=== PATIENT | female | born 1980 | race Caucasian/White ===

== ENCOUNTER 2019-06-17 | Emergency (ER) | payer MEDICARE, OTHER ==
[~2019-06-17] VITALS: Ht 177.8 cm; Wt 139.7 kg
--- OUTSIDE RECORDS SUMMARY | 2019-06-17 00:05 | XMS REPORT | Summary of Care ---
Author Organization Unknown Address Unknown Phone Unavailable Encounter HQ Encntr_alias(FIN) [id number] Date(s): 03/15/15 - 03/15/15 [facility] Outpatient Imaging - [address] [address]- [facility] [phone] Discharge Disposition: Home Physician Attending: Curtis Ortega MD Vital Signs No data available for this section Problem List No data available for this section Allergies, Adverse Reactions, Alerts No data available for this section Medications No data available for this section Results No data available for this section Immunizations No data available for this section Procedures No data available for this section Social History No data available for this section Assessment and Plan No data available for this section
--- OUTSIDE RECORDS SUMMARY | 2019-06-17 00:05 | XMS REPORT | Summary of Care ---
Author Author [facility] Outpatient Imaging - [place] Organization [facility] - [place] Address Unknown Phone Unavailable Encounter HQ Encntr_alias(FIN) [id number] Date(s): 09/05/17 - 09/05/17 [facility] Outpatient Imaging - [place] [address] [place] [phone] Discharge Disposition: Home or Self Care Attending Physician: Curtis Ortega MD Vital Signs No data [...]
--- OUTSIDE RECORDS SUMMARY | 2019-06-17 00:05 | XMS REPORT | Continuity of Care Document ---
Author Author [facility] Address Unknown Phone Unavailable Care Team Providers Care Knowledge Management Consultant Name Role Phone [employer]) Information [employer] Unavailable Unavailable Problems Problem Status Onset Date Classification Date Reported Comments Source Nontoxic multinodular goiter 12/20/2017 03/22/2018 [facility] [place] DX; E04.1= Active 06/07/2017 [facility] E04.1 - NONTOXIC SINGLE THYROID NODULE Active 05/28/2017 [facility] [place] NONTOXIC SINGLE THYROID NODULE Active [facility] Medications No Data Provided for This Section Allergies, Adverse Reactions, Alerts No Known Medication Allergies Immunizations No Data Provided for This Section Results No Data Provided for This Section Pathology Reports No Data Provided for This Section Diagnostic Reports Report Value Date Source Thyroid US Exam: Thyroid ultrasound Reason for Exam: E04.2 Nontoxic multinodular goiter - E04.2 Nontoxic multinodular goiter Comparison Exam: Ultrasound 06/15/2017 and 06/01/2017 Discussion: Multiple axial and sagittal images were obtained of the thyroid gland. The right lobe of the thyroid gland measures 4.7 x 1.2 x 1.7 cm. A few nodules are seen within the right lobe. The largest measures 0.9 x 0.8 x 0.6 cm. Vascular flow within the thyroid parenchyma is within normal limits. The isthmus measures 0.2 cm in width and is within normal limits. The left lobe of the thyroid gland measures 4.6 x 1.1 x 1.9 cm. A few nodules are seen within the left lobe. The largest is complex and measures 1.1 x 0.9 x 0.5 cm (previously 1.8 x 1.4 x 1.0 cm). Vascular flow within the thyroid parenchyma is within normal limits. No lymphadenopathy seen within the thyroid region. Impression: 1. Thyroid gland is within normal limits for size. Multiple nodules and cysts are seen. The largest is on the left and measures 1.1 x 0.9 x 0.5 cm (previously 1.8 x 1.4 x 1.0 cm). 12/14/2017 ASHLEIGH Hernandez Knee 1-2 Views unilateral DX Exam: Right knee x-ray, 2 views Reason for Exam: - knee pain Comparison Exam: none Discussion: No fractures or dislocations are seen of the right knee. The joint spaces are preserved. No intraosseous lesions. No radiopaque foreign bodies. Impression: 1. No acute bony abnormalities seen within the right knee. 09/05/2017 ASHLEIGH Hernandez Thyroid biopsy w guidance US Patient Name: MAY PARIS : 1980; Age: 37 years Female MR: [id number] Study: Thyroid biopsy w guidance US 06/15/2017 9:33 AM CDT PROCEDURE: Ultrasound-guided FNA of left thyroid nodule CLINICAL INFORMATION: Left thyroid nodule Comparison: Thyroid ultrasound on 06/01/2017 CONSENT: The procedure, risks, benefits and alternatives were discussed with the patient and written informed consent was obtained. TECHNIQUE: surveillance sensor operator: Dr. Kitchen Preoperative diagnosis: Left thyroid nodule Postoperative diagnosis: Same Estimated blood loss: Minimal Pain control: 1% lidocaine was administered for local anesthesia. Preprocedure sonographic imaging demonstrated a 1.9 cm predominantly cystic nodule within the left thyroid lobe. The patient's neck was prepped and draped in the usual sterile fashion. The overlying skin was anesthetized with 1% lidocaine. Under sterile sonographic guidance, fine-needle aspiration (4 passes) was performed of the targeted nodule using 25-gauge needles. The nodular component was specifically targeted. Slides were prepared by the production control technologist. Patient tolerated the procedure well without immediate complication. IMPRESSION: Successful ultrasound-guided fine-needle aspiration of the left thyroid nodule. SL: [id number] 06/15/2017 [facility] Thyroid US Exam: Thyroid ultrasound Reason for Exam: - E04.1 Nontoxic single thyroid nodule Comparison Exam: None Discussion: Multiple axial and sagittal images were obtained of the thyroid gland. The right lobe of the thyroid gland measures 4.6 x 1.8 x 1.1 cm. Slightly hyperechoic nodule seen within the inferior aspect of the right thyroid lobe measuring 9 mm. Note that this may represent a parathyroid gland. Vascular flow within the thyroid parenchyma is within normal limits. The isthmus measures 0.2 cm in width and is within normal limits. The left lobe of the thyroid gland measures 4.5 x 1.9 x 1.6 cm. Within the superior pole of the simple appearing cyst measuring 3 mm. A complex cystic and solid-appearing nodule seen within the interpolar region measuring 1.8 x 1.4 x 1.0 cm. Slightly hyperechoic nodule seen within the inferior aspect of the left thyroid lobe measuring 5 mm. Note that this may represent a parathyroid gland. Vascular flow within the thyroid parenchyma is within normal limits. No lymphadenopathy seen within the thyroid region. Impression: 1. Thyroid gland is within normal limits for size. Multiple nodules and cysts are seen. The largest is seen on the left and is complex cystic and solid. Follow- up exam is recommended. 06/01/2017 [facility] [place] [facility] Consultation Notes No Data Provided for This Section Discharge Summaries No Data Provided for This Section History and Physicals No Data Provided for This Section Vital Signs No Data Provided for This Section Encounters Location Location Details Encounter Type Encounter Number Reason For Visit Attending Provider ADM Date DC Date Status Source [facility] Outpatient Imaging - [place] [facility] [id number] Curtis Ortega 12/08/2014 12/09/2014 [facility] [place] [facility] - [place] [facility] [id number] Curtis Ortega 03/15/2015 03/16/2015 [facility] [place] [facility] Out[facility] Imaging - [place] [facility] [id number] Ceci Smith 06/01/2017 06/02/2017 [facility] [place] [facility] Outpatient [id number] Ceci Smith 06/15/2017 06/16/2017 [facility] Outpatient Imaging - [place] [facility] [id number] Curtis Ortega 09/05/2017 09/06/2017 [facility] [place] [facility] Out[facility] Imaging - [place] [facility] [id number] Cecifior Smith 12/14/2017 12/15/2017 [facility] [place] Procedures No Data Provided for This Section Assessment and Plan No Data Provided for This Section Plan of Care No Data Provided for This Section Social History Social History Date Source No data available for this section 12/15/2017 [facility] [place] No data available for this section 06/16/2017 [facility] Family History No Data Provided for This Section Advance Directives No Data Provided for This Section Functional Status No Data Provided for This Section
--- OUTSIDE RECORDS SUMMARY | 2019-06-17 00:05 | XMS REPORT ---
Author Author [facility] Address Unknown Phone Unavailable Care Team Providers Care Marionette Performer Name Role Phone Unavailable Unavailable Payers Payer Name Policy Type Policy Number Effective Date Expiration Date Problems This patient has no known problems. Allergies, Adverse Reactions, Alerts Allergy Name Allergy Type Status Severity Reaction(s) Onset Date Inactive Date Treating Clinician Comments No Known Allergies DA Active U 2018-11-25 00:00:00 No Known Allergies DA Active U 2015-04-03 00:00:00 Medications This patient has no known medications. Results Test Description Test Time Test Comments Text Results Atomic Results Result Comments - CT ABD PELVIS W/CONT 2018-11-25 18:22:00 Name: MAY PARIS [facility] : 1980 Age/S: 38 / F [address] [place] [address] Unit #: [id number] Loc: [place] [address] Phys: Kingsotn Cronin Acct: [id number] Dis Date: Status: REG ER PHONE #: [phone] Exam Date: 11/25/2018 1750 FAX #: [phone] Reason: lower abdominal pain, vomiting, fever EXAMS: CPT CODE: [id number] CT ABD PELVIS W/CONT [id number] PROCEDURE: CT ABDOMEN AND PELVIS WITH CONTRAST INDICATION: lower abdominal pain, vomiting, fever COMPARISON: November 2011 TECHNIQUE: Helical imaging was performed diaphragm through the symphysis with multiplanar reconstructions. IV CONTRAST: 100 mL Isovue-300. GI CONTRAST: 10 mL Gastrografin diluted in water. CT imaging performed at this location utilizes radiation dose optimization techniques which include one or more of the following: - Automated exposure control -Adjustment of the mA and/or kV according to patient size -Use of iterative reconstruction technique CT Radiation Dose DLP 719.17 mGy-cm FINDINGS: LOWER CHEST: The lung bases are clear. LIVER: Normal. GALLBLADDER: Surgically absent SPLEEN: Normal. PANCREAS: Normal. ADRENALS: Normal. KIDNEYS: 10 x 9 mm water attenuation lesion ventral cortex lower pole right kidney compatible with benign cyst. The kidneys are otherwise normal. No urinary calculi, hydronephrosis or perinephric edema. BOWEL: Stomach is contracted, otherwise unremarkable. GI contrast progresses through normal caliber small bowel into the colon without obstruction. Scattered fluid levels within normal caliber small bowel. No gross pathologic wall thickening. No associated mesenteric edema. Subcentimeter mesenteric nodes without significant change. The colon is unremarkable. APPENDIX: Normal. PERITONEUM: No free intraperitoneal fluid or air. PAGE 1 Signed Report (CONTINUED) Name: MAY PARIS [facility] : 1980 Age/S: 38 / F [address] [place] [address] Unit #: [id number] Loc: [place] [address] Phys: Kingston Cronin Acct: [id number] Dis Date: Status: REG ER PHONE #: [phone] Exam Date: 11/25/2018 1750 FAX #: [phone] Reason: lower abdominal pain, vomiting, fever EXAMS: CPT CODE: [id number] CT ABD PELVIS W/CONT 51297 <Continued> RETROPERITONEUM: No adenopathy. The aorta is normal. PELVIS: Assessment limited secondary to increased image noise related to patient body habitus. No pelvic mass. The urinary bladder is unremarkable. MUSCULOSKELETAL: Degenerative changes lumbar spine. No acute skeletal abnormality. IMPRESSION: 1. Air-fluid levels within normal caliber small bowel most compatible with an enteritis. Negative for bowel obstruction. 2. Small right renal cortical cyst. SL: [id number] at 1822 Reported and signed by: Gene Toney M.D. CC: Will Grayson MD; Kingston GARZA Technologist:RT Tomy(R) CTDI: DLP: Trnscb Date/Time: 11/25/2018 (1821) [email or web address] Orig Print D/T: S: 11/25/2018 (8556) CTDI: DLP: PAGE 2 Signed Report URINALYSIS COMPLETE 2018-11-25 15:50:00 UA COLOR (test code=COLU) YELLOW YEL/STRAW UA APPEARANCE (test code=APPU) SL CLOUDY CLEAR UA GLUCOSE DIPSTICK (test code=DGLUU) 3+ NEGATIVE UA BILIRUBIN DIPSTICK (test code=BILU) NEGATIVE NEGATIVE UA KETONE DIPSTICK (test code=KETU) NEGATIVE NEGATIVE UA SPECIFIC GRAVITY (test code=SGU) 1.035 1.005-1.030 UA BLOOD DIPSTICK (test code=JOE) NEGATIVE NEGATIVE UA PH DIPSTICK (test code=MARILU) 6.0 5.0-7.0 UA PROTEIN DIPSTICK (test code=PROU) NEGATIVE NEGATIVE UA UROBILINIOGEN DIPSTICK (test code=URO) 0.2 mg/dL 0.2-1.0 UA NITRITE DIPSTICK (test code=BRANDON) NEGATIVE NEGATIVE UA LEUKOCYTE ESTERASE DIPSTICK (test code=LEUU) NEGATIVE NEGATIVE UA WBC (test code=WBCU) 0-3 WBC/HPF 0-3 UA RBC (test code=RBCU) 0-3 RBC/HPF 0-3 UA BACTERIA (test code=BACU) TRACE /HPF NONE SEEN UA SQUAMOUS CELLS (test code=SQU) 0-5 /HPF NONE SEEN COMMENTS: Clean CatchHEPATIC FUNCTION [id number] 15:38:00* Test Item Value Reference Range Comments TOTAL PROTEIN (test code=PROT) 8.2 g/dL 6.4-8.2 ALBUMIN (test code=ALB) 3.50 g/dL 3.4-5.0 BILIRUBIN TOTAL (test code=BILT) 0.70 mg/dL 0.0-1.0 BILIRUBIN DIRECT (test code=BILD) 0.20 MG/DL 0.0-0.30 BILIRUBIN INDIRECT (test code=BILIND) 0.50 MG/DL SGOT/AST (test code=AST) 18 IUnit/L 15-37 SGPT/ALT (test code=ALT) 19 IUnit/L 15-65 ALKALINE PHOSPHATASE TOTAL (test code=ALKP) 86 IUnit/L 20-125 [id number] 15:38:00* Test Item Value Reference Range Comments LIPASE (test code=LIP) 104 IUnit/L 73-393 HCG SERUM [id number] 15:38:00* Test Item Value Reference Range Comments HCG SERUM QUAL (test code=HCGQL) SERUM NEGATIVE NEGATIVE HEPATIC FUNCTION [id number] 15:36:00* Test Item Value Reference Range Comments TOTAL PROTEIN (test code=PROT) g/dL 6.4-8.2 ALBUMIN (test code=ALB) g/dL 3.4-5.0 BILIRUBIN TOTAL (test code=BILT) mg/dL 0.0-1.0 BILIRUBIN DIRECT (test code=BILD) MG/DL 0.0-0.30 SGOT/AST (test code=AST) IUnit/L 15-37 SGPT/ALT (test code=ALT) IUnit/L 15-65 ALKALINE PHOSPHATASE TOTAL (test code=ALKP) IUnit/L 20-125 [id number] 15:36:00* Test Item Value Reference Range Comments LIPASE (test code=LIP) IUnit/L 73-393 HCG SERUM [id number] 15:36:00* Test Item Value Reference Range Comments HCG SERUM QUAL (test code=HCGQL) SERUM NEGATIVE NEGATIVE CBC W/AUTO [id number] 15:20:00* Test Item Value Reference Range Comments WHITE BLOOD CELL (test code=WBC) 6.22 x10 3/uL 4.5-11.0 RED BLOOD CELL (test code=RBC) 4.90 x10 6/uL 3.54-5.02 HEMOGLOBIN (test code=HGB) 14.9 g/dL 11.0-15.0 HEMATOCRIT (test code=HCT) 45.4 % 33.0-45.0 MEAN CELL VOLUME (test code=MCV) 92.7 fL 81.0-99.0 MEAN CELL HGB (test code=MCH) 30.4 pg 27.0-33.0 MEAN CELL HGB CONCETRATION (test code=MCHC) 32.8 g/dL 33.0-37.0 RED CELL DISTRIBUTION WIDTH CV (test code=RDW) 16.8 % 11.5-14.5 RED CELL DISTRIBUTION WIDTH SD (test code=RDW-SD) 49.1 fL 37.0-54.0 PLATELET COUNT (test code=PLT) 298 x10 3/uL 150-400 MEAN PLATELET VOLUME (test code=MPV) 10.2 fL 7.0-9.0 NEUTROPHIL % (test code=NT%) 85.1 % 56.0-77.0 IMMATURE GRANULOCYTE % (test code=IG%) 0.3 % 0.0-2.0 LYMPHOCYTE % (test code=LY%) 9.5 % 14.0-32.0 MONOCYTE % (test code=MO%) 4.2 % 4.8-9.0 EOSINOPHIL % (test code=EO%) 0.3 % 0.3-3.7 BASOPHIL % (test code=BA%) 0.6 % 0.0-2.0 NUCLEATED RBC % (test code=NRBC%) 0.0 % 0-0 NEUTROPHIL # (test code=NT#) 5.29 x10 3/uL 2.0-7.6 IMMATURE GRANULOCYTE # (test code=IG#) 0.02 x10 3/uL 0.00-0.03 LYMPHOCYTE # (test code=LY#) 0.59 x10 3/uL 1.0-3.8 MONOCYTE # (test code=MO#) 0.26 x10 3/uL 0.1-0.8 EOSINOPHIL # (test code=EO#) 0.02 x10 3/uL 0.0-0.2 BASOPHIL # (test code=BA#) 0.04 x10 3/uL 0.0-0.2 NUCLEATED RBC # (test code=NRBC#) 0.00 x10 3/uL 0.0-0.1 MANUAL DIFF REQUIRED (test code=MDIFF) NO TROPONIN-I [id number] 14:59:00* Test Item Value Reference Range Comments TROPONIN-I RAPID (test code=TROPIRAP) 0.00 ng/mL 0.00-0.08 Performed by certified receiving [facility] Global Task Force with joint leadership from the EuropeanSociety of Cardiology (ESC), the [place] [employer] Foundation (ACCF), the [place] Heart Association(AHA) and the World Heart Federation (WHF) refined past criteria of myocardial infarction ([place]) with a universal definition of myocardial infarction that supports the use of cTnI as a preferred biomarker for myocardial injury. The universal definition of W[place], according to this taskforce, is defined as a typical rise and gradual fall ofcardiac biomarkers (preferably troponin) with at least onevalue above the 99th percentile of the upper reference limit (URL) together with evidence of myocardial ischemia with at least one of the following:* ischemic symptoms,* pathological Q waves on electrocardiogram (ECG),* ischemic ECG changes,* or imaging evidence of new loss of viable myocardium or new regional wall motion abnormality. An elevated troponin value alone is not sufficient todiagnose a myocardial infarction. Rather, the patient sclinical presentation (history, physical exam) and ECGshould be used in conjunction with troponin in thediagnostic evaluation of suspected myocardial infarction. Aserial sampling protocol is recommended to facilitate the identification of temporal changes in troponin levels characteristic of W[place]. CHEMISTRY 8 [id number] 14:59:00* Test Item Value Reference Range Comments ISTAT-SODIUM (test code=NAP) MMOL/L 134-147 ISTAT-POTASSIUM (test code=KP) MMOL/L 3.4-5.0 ISTAT-CHLORIDE (test code=CLP) MMOL/L 100-108 ISTAT CARBON DIOXIDE (test code=ISTAT-CO2) mmol/L 21-33 ISTAT CALCIUM IONIZED (test code=ISTAT-SU) MG/DL 1.12-1.32 ISTAT-GLUCOSE (test code=GLUP) MG/DL 70-110 ISTAT-BUN (test code=BUNP) MG/DL 7-18 BEDSIDE CREATININE (test code=CREATBED) MG/DL 0.6-1.3 GLOMERULAR FILTRATION RATE POC (test code=GFRBED) 85 ML/MIN CHEMISTRY 8 [id number] 14:59:00* Test Item Value Reference Range Comments ISTAT-SODIUM (test code=NAP) 138 MMOL/L 134-147 ISTAT-POTASSIUM (test code=KP) 3.7 MMOL/L 3.4-5.0 ISTAT-CHLORIDE (test code=CLP) 97 MMOL/L 100-108 Performed by certified receiving tank operator at [facility] ISTAT CARBON DIOXIDE (test code=ISTAT-CO2) 29.0 mmol/L 21-33 ISTAT CALCIUM IONIZED (test code=ISTAT-SU) 1.12 MG/DL 1.12-1.32 ISTAT-GLUCOSE (test code=GLUP) 115 MG/DL 70-110 ISTAT-BUN (test code=BUNP) 8 MG/DL 7-18 BEDSIDE CREATININE (test code=CREATBED) 0.8 MG/DL 0.6-1.3 GLOMERULAR FILTRATION RATE POC (test code=GFRBED) 85 ML/MIN LACTIC ACID [id number] 14:47:00* Test Item Value Reference Range Comments LACTIC ACID POC (test code=LACTP) 0.9 MMOL/L 0.90-1.70 Performed by certified receiving tank operator at [facility]
--- OUTSIDE RECORDS SUMMARY | 2019-06-17 00:05 | XMS REPORT | Summary of Care ---
Author Organization Unknown Address Unknown Phone Unavailable Encounter HQ Jose Fr_jermain([facility]) [id number] Date(s): 12/08/14 - 12/08/14 [facility] Outpatient Imaging - [address] [address]- [place] Discharge Disposition: Home Physician Attending: Curtis Ortega MD Reason for Visit 724.5 - BACKACHE NOS Problem List No data available for this section Allergies, Adverse Reactions, Alerts No data available for this section Medications No data available for this section Medications Administered During Your Visit No data available for this section Immunizations No data available for this section
--- OUTSIDE RECORDS SUMMARY | 2019-06-17 00:05 | XMS REPORT | Summary of Care ---
Author Author [facility] Outpatient Imaging - [place] Organization [facility]patient [facility] - [place] Address Unknown Phone Unavailable Encounter HQ Encntr_alias(FIN) [id number] Date(s): 12/14/17 - 12/14/17 [facility] Outpatient Imaging - [place] [address] [place] [phone] Encounter Diagnosis Nontoxic multinodular goiter (Final) - 12/19/17 Discharge Disposition: Home or Self Care Attending Physician: Ceci Smith MD Vital Signs No data available for [...]
--- OUTSIDE RECORDS SUMMARY | 2019-06-17 00:05 | XMS REPORT | Summary of Care ---
Author Author [facility] Outpatient Imaging - [place] Organization [facility] Outpatient Imaging - [place] Address Unknown Phone Unavailable Encounter HQ Encntr_alias(FIN) [id number] Date(s): 06/01/17 - 06/01/17 [facility] Outpatient Imaging - [place] [address] [place] [phone] Discharge Disposition: Home or Self Care Attending [...]
== END 2019-06-17 00:19 | disposition home or self-care (01) ==
LOC: ER
DX: E11.65 Type 2 diabetes mellitus with hyperglycemia (principal)
CPT/HCPCS: 36415; 82948; 99282